=== PATIENT | male | born 1960 | race Asian ===

== ENCOUNTER 2023-12-12 03:43 | Outpatient (CLI) | payer OTHER | END 2023-12-12 03:44 | disposition critical access hospital (66) | LOC: EMS 03:43 | DX: J45.901 Unspecified asthma with (acute) exacerbation (principal) | CPT/HCPCS: A0425; A0427 ==

== ENCOUNTER 2023-12-12 04:00 | Emergency (ER) | payer OTHER ==
[2023-12-12] MEDS ORDERED: iohexoL-300 100 ML VIAL ONE (04:08)
[2023-12-12 04:15] LABS: BASOPHILS % (AUTO) 0.6 %; EOSINOPHILS % (AUTO) 14.3 %; HCT - HEMATOCRIT 46.9 % (42.0-52.0); HGB - HEMOGLOBIN 14.9 g/dL (14.0-18.0); LYMPHOCYTES % (AUTO) 40.4 %; MEAN CORPUSCULAR HEMOGLOBIN 29.1 pg (27.0-31.0); MEAN CORPUSCULAR HGB CONC 31.8 g/dL (32.0-36.0); MEAN CORPUSCULAR VOLUME 91.6 fL (80.0-94.0); MEAN PLATELET VOLUME 9.5 fL (7.4-11.4); MONOCYTES % (AUTO) 6.1 %; NEUTROPHILS % (AUTO) 38.4 %; PLT - PLATELET COUNT 285 10^3/uL (130-450); RED BLOOD COUNT 5.12 10^6/uL (4.70-6.10); RED CELL DISTRIBUTION WIDTH 12.3 % (12.0-15.0); WHITE BLOOD COUNT 10.7 x10^3/uL (4.8-10.8)
[2023-12-12 04:19] LABS: ABNORMAL LYMPHS % (MANUAL) 0 %
[2023-12-12] MEDS: IPRATROPIUM/ALBUTEROL 3 ML NEB INH STA (04:20)
--- NOTE | 2023-12-12 04:28 | ED Physician Documentation ---
History of Present Illness - Stated complaint Stated Complaint: SOA - History obtained from History obtained from: Patient, Family (son) - Additonal information Additional information: 63yM with pmh asthma, former smoker (quit several months ago) presents from home with acutely worsening soa tonight and chest tightness. denies fever, cp, increased cough, n/v diaphoresis, leg swelling. denies FH [place]. denies personal history of DM, HTN, HLD. denies testosterone or hormone use. no prior hx dvt or pe. PD PAST MEDICAL HISTORY - Past Medical History Past Medical History: Yes Respiratory: Asthma - Allergies Allergies/Adverse Reactions: Allergies Allergy/AdvReac Type Severity Reaction Status Date / Time No Known Drug Allergies Allergy Verified 12/12/23 04:08 - Social History Does the pt smoke?: No Smoking Status: Never smoker - Immunizations Immunizations are current?: Yes PD ED PE NORMAL - Vitals Vital signs reviewed: Yes - General General: Alert and oriented X 3, Well developed/nourished, Other (moderate increased wob) - HEENT HEENT: Atraumatic, PERRL, Moist mucous membranes, Pharynx benign - Neck Neck: Supple, no meningeal sign - Cardiac Cardiac: Other (tachycardic rate, regular rhythm) - Respiratory Respiratory: Other (BL wheezing diffuse throughout all lung faria) - Abdomen Abdomen: Non tender, Non distended - Derm Derm: Normal color, Warm and dry - Neuro Neuro: Alert and oriented X 3 - Psych Psych: Normal mood, Normal affect Results - Vitals Vitals: Vital Signs - 24 hr 12/12/23 12/12/23 12/12/23 04:04 04:15 04:20 Temperature 37.0 C Heart Rate 119 H 122 H 118 H Respiratory 30 H 32 H 28 H Rate Blood Pressure 129/93 H 128/101 H O2 Saturation 99 98 If not protocol 8 : Oxygen Flow, liters/minute 12/12/23 12/12/23 12/12/23 04:30 04:35 05:05 Temperature Heart Rate 119 H 109 H 120 H Respiratory 21 24 Rate Blood Pressure 123/85 H 112/89 H O2 Saturation 98 99 If not protocol : Oxygen Flow, liters/minute 12/12/23 05:30 Temperature Heart Rate 105 H Respiratory 18 Rate Blood Pressure 113/79 O2 Saturation 96 If not protocol : Oxygen Flow, liters/minute Oxygen O2 Source Room air Oxygen Flow Rate 8 - EKG (time done) 0406 EKG releavant findings:: EKG personally interpreted by author of this note. Relevant findings are: Rate: Rate (enter#) (116) Rhythm: Sinus tachycardia [place]: Normal Intervals: Normal ID QRS: Normal Ischemia: Other (subtle JANA in anterolateral leads without reciprocal changes) 0508 EKG releavant findings:: EKG personally interpreted by author of this note. Relevant findings are: Rate: Rate (enter#) (105) Rhythm: Sinus tachycardia [place]: Normal Intervals: Normal ID QRS: Normal Ischemia: ST elevation c/w ischemia (anterolateral JANA with subtle ST depression in lead III) - Labs Labs: Laboratory Tests 12/12/23 12/12/23 12/12/23 04:05 04:05 04:05 WBC 10.7 RBC 5.12 Hgb 14.9 Hct 46.9 MCV 91.6 MCH 29.1 MCHC 31.8 L RDW 12.3 Plt Count 285 MPV 9.5 Neut # (Auto) Not Reportable Lymph # (Auto) Not Reportable [place] # (Auto) Not Reportable Eos # (Auto) Not Reportable Baso # (Auto) Not Reportable Absolute Nucleated RBC Not Reportable Total Counted 100 Band Neuts % (Manual) 7 Reactive Lymphs % (Man) 12 Abnorm Lymph % (Manual) 0 Nucleated RBC % Not Reportable Neutrophils # (Manual) 4.2 Lymphocytes # (Manual) 4.8 H Monocytes # (Manual) 0.3 Eosinophils # (Manual) 1.4 H Basophils # (Manual) 0.0 Differential Comment MANUAL DIFFERENTIAL WBC Morphology 2+ REACTIVE LYMPHS Bld Gas Analysis Time Sample Site ABG pH ABG pCO2 ABG pO2 ABG HCO3 ABG Total CO2 ABG O2 Saturation ABG Base Excess Bernardo Test VBG pH 7.310 VBG pCO2 51.7 H VBG pO2 61.2 H VBG HCO3 25.4 VBG Total CO2 27.0 VBG O2 Saturation 89.6 H VBG Base Excess -1.6 O2 Delivery Device FiO2 EPAP IPAP Sodium 139 Potassium 3.7 Chloride 107 Carbon Dioxide 27 Anion Gap 5.0 L BUN 15 Creatinine 1.0 Estimated GFR (MDRD) 76 L Glucose 113 H Calcium 9.0 Total Bilirubin 0.6 AST 21 ALT 19 Alkaline Phosphatase 84 Troponin I High Sens 61.4 H* B-Natriuretic Peptide Total Protein 7.0 Albumin 4.1 Globulin 2.9 Albumin/Globulin Ratio 1.4 Lipase 44 Nasal Adenovirus (PCR) Nasal B. parapertussis DNA (PCR) Nasal Coronavir 229E PCR Nasal Coronavir HKU1 PCR Nasal Coronavir NL63 PCR Nasal Coronavir OC43 PCR Nasal Enterovir/Rhinovir PCR Nasal Influenza B PCR Nasal Influenza A PCR Nasal Parainfluen 1 PCR Nasal Parainfluen 2 PCR Nasal Parainfluen 3 PCR Nasal Parainfluen 4 PCR Nasal RSV (PCR) Nasal B.pertussis DNA PCR Nasal C.pneumoniae (PCR) Alfred Human Metapneumo PCR Nasal M.pneumoniae (PCR) Nasal SARS-CoV-2 (PCR) 12/12/23 12/12/23 12/12/23 04:05 04:05 05:15 WBC RBC Hgb Hct MCV MCH MCHC RDW Plt Count MPV Neut # (Auto) Lymph # (Auto) [place] # (Auto) Eos # (Auto) Baso # (Auto) Absolute Nucleated RBC Total Counted Band Neuts % (Manual) Reactive Lymphs % (Man) Abnorm Lymph % (Manual) Nucleated RBC % Neutrophils # (Manual) Lymphocytes # (Manual) Monocytes # (Manual) Eosinophils # (Manual) Basophils # (Manual) Differential Comment WBC Morphology Bld Gas Analysis Time 05:21 Sample Site RIGHT RADIAL ABG pH 7.39 ABG pCO2 41 ABG pO2 231 H* ABG HCO3 24.2 ABG Total CO2 25.4 ABG O2 Saturation 99 H ABG Base Excess -0.8 Bernardo Test POSITIVE VBG pH VBG pCO2 VBG pO2 VBG HCO3 VBG Total CO2 VBG O2 Saturation VBG Base Excess O2 Delivery Device BiPAP FiO2 50.00 EPAP 5 IPAP 12 Sodium Potassium Chloride Carbon Dioxide Anion Gap BUN Creatinine Estimated GFR (MDRD) Glucose Calcium Total Bilirubin AST ALT Alkaline Phosphatase Troponin I High Sens B-Natriuretic Peptide 73 Total Protein Albumin Globulin Albumin/Globulin Ratio Lipase Nasal Adenovirus (PCR) NOT DETECTED Nasal B. parapertussis DNA (PCR) NOT DETECTED Nasal Coronavir 229E PCR NOT DETECTED Nasal Coronavir HKU1 PCR NOT DETECTED Nasal Coronavir NL63 PCR NOT DETECTED Nasal Coronavir OC43 PCR NOT DETECTED Nasal Enterovir/Rhinovir PCR NOT DETECTED Nasal Influenza B PCR NOT DETECTED Nasal Influenza A PCR NOT DETECTED Nasal Parainfluen 1 PCR NOT DETECTED Nasal Parainfluen 2 PCR NOT DETECTED Nasal Parainfluen 3 PCR NOT DETECTED Nasal Parainfluen 4 PCR NOT DETECTED Nasal RSV (PCR) NOT DETECTED Nasal B.pertussis DNA PCR NOT DETECTED Nasal C.pneumoniae (PCR) NOT DETECTED Alfred Human Metapneumo PCR NOT DETECTED Nasal M.pneumoniae (PCR) NOT DETECTED Nasal SARS-CoV-2 (PCR) NOT DETECTED PD Medical Decision Making - ED course ED course: 63yM with pmh asthma p/w severe acute asthma exacerbation from home. he is s/p 125 solumedrol, 1 duoneb with ems. He was acutely dyspneic on arrival so bipap was immediately applied with improvement in work of breathing and subjective improvement. continuing with duoneb followed by albuterol neb treatments. IVF provided to address his tachycardia. POCUS at bedside showed clear lung faria. Cardiac POCUS revealed globally preserved cardiac contractility. No pericardial effusion. CTA chest ordered to evaluate for PE. cbc, abdominal panel, troponin, lactic acid, ekg, bnp, blood cultures X 2. Went ahead and ordered IV rocephin/azithromycin for possible sepsis 2/2 pneumonia. 325 asa and 300 plavix ordered given elevated troponin 61.4. Patient's ekg is concerning for potential ischemia with subtle JANA in anterolateral leads without reciprocal changes. Plan to repeat troponin and evaluate ABG after a course of bipap. Also waiting for lactic acid, bnp, rvp results. patient in ct now. Repeat EKG with progression of previously more subtle anterolateral JANA, now with reciprocal changes in inferior leads. d/w Dr. Granado ED doc who agrees patient is experiencing acute STEMI and accepts in transfer pending approval by cardiology interventionalist. Dr. Springer, poultry farm laborer, accepts directly to woods lab[facility]. life flight activated. canceled antibiotics, flu ids, blood cultures in light of diagnosis of acute STEMI. wet read of PE study is no central or segmental PE with normal lung parenchyma. aspirin, plavix, heparin ordered. Departure - Departure Disposition: 02 Transfer Acute Care Hosp Clinical Impression: STEMI (ST elevation myocardial infarction) Condition: Serious
[2023-12-12] MEDS ORDERED: ALBUTEROL NEB 2.5 MG/3 ML INH STA (04:29)
[2023-12-12 04:34] LABS: ALBUMIN 4.1 g/dL (3.2-5.5); ALBUMIN/GLOBULIN RATIO 1.4 (1.0-2.2); BILIRUBIN,TOTAL 0.6 mg/dL (0.2-1.0); POTASSIUM 3.7 mmol/L (3.5-4.5); VBG HCO3 25.4 mmol/L (23-28); VBG PCO2 51.7 mmHg (41-51); VBG PH 7.31 (7.31-7.41); VBG PO2 61.2 mmHg (25-47)
[2023-12-12 04:35] LABS: VBG BASE EXCESS -1.6 mmol/L (-2 - +2); VBG OXYGEN SATURATION 89.6 % (60-80)
[2023-12-12 04:38] LABS: TROPONIN I HIGH SENSITIVITY 61.4 ng/L (2.3-19.7)
[2023-12-12 05:00] LABS: BAND NEUTROPHILS % (MANUAL) 7 %; EOSINOPHILS # (MANUAL) 1.4 10^3/uL (0-0.7); LYMPHOCYTES # (MANUAL) 4.8 10^3/uL (1.5-3.5); LYMPHOCYTES % (MANUAL) 33 %; MONOCYTES # (MANUAL) 0.3 10^3/uL (0.0-1.0); NEUTROPHILS # (MANUAL) 4.2 10^3/uL (1.5-6.6); REACTIVE LYMPHS % (MANUAL) 12 %
[2023-12-12 05:01] LABS: DIFFERENTIAL COMMENT MANUAL DIFFERENTIAL; WBC MORPHOLOGY (MULTIPLE) 2+ REACTIVE LYMPHS (NORMAL)
[2023-12-12] MEDS: CLOPIDOGREL 300 MG TABLET PO STA (05:07)
[2023-12-12] MEDS: ASPIRIN 325 MG TABLET PO STA (05:07)
[2023-12-12 05:10] LABS: B. PARAPERTUSSIS- RESP PCR PAN NOT DETECTED; B. PERTUSSIS- RESP PCR PANEL NOT DETECTED; C. PNEUMONIAE- RESP PCR PANEL NOT DETECTED; CORONAVIRUS 229E-RESP PCR NOT DETECTED; CORONAVIRUS HKU1-RESP PCR NOT DETECTED; CORONAVIRUS NL63-RESP PCR NOT DETECTED; CORONAVIRUS OC43-RESP PCR NOT DETECTED; HUMAN METAPNEUMOVIRUS NOT DETECTED; INFLUENZA A- RESP PCR PANEL NOT DETECTED; M. PNEUMONIAE- RESP PCR PANEL NOT DETECTED; PARAINFLUENZA VIRUS 4 NOT DETECTED; RHINOVIRUS/ENTEROVIRUS NOT DETECTED; RSV- RESP PCR PANEL NOT DETECTED; SARS-CoV-2 -RESP PCR PANEL NOT DETECTED
[2023-12-12 05:11] LABS: INFLUENZA B - RESP PCR PANEL NOT DETECTED; PARAINFLUENZA VIRUS 1 NOT DETECTED; PARAINFLUENZA VIRUS 2 NOT DETECTED; PARAINFLUENZA VIRUS 3 NOT DETECTED
[2023-12-12] MEDS: iohexoL-300 100 ML VIAL IVP ONE (05:13)
[2023-12-12 05:22] LABS: ABG PH 7.39 (7.35-7.45)
[2023-12-12] MEDS: HEPARIN 5,000 UNIT/ML VIAL IVP STA (05:22)
[2023-12-12 05:23] LABS: ABG BASE EXCESS -0.8 mmol/L (-2.0-3.0); ABG HCO3 24.2 mmol/L (22.0-26.0); ABG OXYGEN SATURATION 99 % (94-98); ABG PCO2 41 mmHg (34-45); ABG TCO2 25.4 MMOL/L (21.0-29.0); ALLEN TEST POSITIVE
[2023-12-12] MEDS: HEPARIN 25000UNITS/500ML (D5W) 25,000 UNIT/500 ML BAG IV SCH (05:24)
[2023-12-12 05:27] LABS: ABG PO2 231 mmHg (80-100)
[2023-12-12 05:41] VITALS: BP 113/79; O2SAT 96
[2023-12-12 05:45] LABS: HCT - HEMATOCRIT 43.5 % (42.0-52.0); HGB - HEMOGLOBIN 14.3 g/dL (14.0-18.0); MEAN CORPUSCULAR HEMOGLOBIN 29.7 pg (27.0-31.0); MEAN CORPUSCULAR HGB CONC 32.9 g/dL (32.0-36.0); MEAN CORPUSCULAR VOLUME 90.4 fL (80.0-94.0); MEAN PLATELET VOLUME 9.6 fL (7.4-11.4); RED BLOOD COUNT 4.81 10^6/uL (4.70-6.10); RED CELL DISTRIBUTION WIDTH 12.3 % (12.0-15.0); WHITE BLOOD COUNT 8.8 x10^3/uL (4.8-10.8)
[2023-12-12] MEDS: cefTRIAXone 2 GM in SODIUM CHLORIDE 0.9% MINIBAG 100 ML IV STA (05:50)
[2023-12-12] MEDS: SODIUM CHLORIDE 0.9% 1,000 ML IV STA (05:50)
[2023-12-12] MEDS: AZITHROMYCIN INJ 500 MG in SODIUM CHLORIDE 0.9% 250 ML IV STA (05:50)
--- NOTE | 2023-12-12 07:09 | XRAY Report ---
PROCEDURE: Chest 1V INDICATIONS: Chest Pain TECHNIQUE: One view of the chest was acquired. COMPARISON: 05/14/2022. FINDINGS: Surgical changes and devices: None. Lungs and pleura: No pleural effusions or pneumothorax. Subtle bilateral pulmonary densities there a re very subtle bilateral pulmonary densities, which may represent very subtle focal areas of bilatera l pneumonia. Mediastinum: Mediastinal contours appear normal. Heart size is normal. Bones and chest wall: No suspicious bony lesions. Overlying soft tissues appear unremarkable. IMPRESSION: Question bilateral subtle pneumonia. Progress films are recommended until clear. Findings are concordant with preliminary interpretation provided by [facility]. Reviewed by: Gregory Herrera MD on 12/12/2023 7:07 AM [facility] Approved by: Gregory Herrera MD on 12/12/2023 7:07 AM PST Station ID: [id number]
--- NOTE | 2023-12-12 07:32 | CT Report ---
PROCEDURE: Angio Chest INDICATIONS: SOA, wheezing CONTRAST: Omni 300, 100mls TECHNIQUE: After the administration of intravenous contrast, 2 mm axial images were acquired from the pulmonary apices to the posterior costophrenic angles during the arterial phase. In addition, 1 mm lung kernel and 5 mm soft tissue kernel reconstructions were performed. 3-dimensional coronal oblique maximum int ensity projection (MIP) reformats, 8 mm axial MIP, and 5 mm coronal and sagittal MPR reformats were t hen performed through the thorax. For radiation dose reduction, the following was used: automated exp osure control, adjustment of mA and/or kV according to patient size. COMPARISON: None. FINDINGS: Image quality: Excellent. Large vessels: No filling defects within the opacified pulmonary arteries, accounting for motion and contrast timing. No evidence of acute aortic syndrome or aortic aneurysm. Lungs and pleura: No consolidation. No pleural effusions. No pneumothorax. No suspicious pulmonary n odules which require follow up. Mediastinum: Heart size is normal. No pericardial effusion. No large vessel abnormality. No mediastin al adenopathy by size criteria. Chest wall and lower neck: Thyroid is unremarkable. No axillary or supraclavicular adenopathy by size . Bones: No aggressive osseous abnormality. Upper Abdomen: Gallstones are noted in the gallbladder. Prominent pancreas. Question mild diffuse acevedo creatic edema. IMPRESSION: 1. No acute pulmonary emboli. 2. No acute pulmonary process. 3. Gallstones. 4. Question mild pancreatitis. Findings are concordant with preliminary interpretation provided by [facility]. Comment: Patient was transferred to [facility] with acute coronary syndrome. The suggesti on of possible pancreatitis was discussed with Dr. Mcdermott, who received the patient from the [facility] emergency department on 12/12/2023 at 0723 hours. Patient is currently in the Cath La b. Dr. Cano will add a lipase to the patient's labs. Reviewed by: Gregory Herrera MD on 12/12/2023 7:30 AM PST Approved by: Gregory Herrera MD on 12/12/2023 7:30 AM PST Station ID: [id number]
== END 2023-12-12 05:52 | disposition short-term general hospital (02) ==
LOC: EDUNIT# → ED 04:00
DX: I21.3 ST elevation (STEMI) myocardial infarction of unspecified site (principal); Z87.891 Personal history of nicotine dependence
CPT/HCPCS: 36415; 36600; 71045; 71275; 80053; 82803; 83605; 83690; 83880; 84484; 85025; 85027; 85730; 87040; 87633; 93005; 94640; 94660; 96374; 99285; A9270; Q9967